=== PATIENT | female | born 1975 | race Caucasian/White ===

== ENCOUNTER 2016-10-26 21:52 | Inpatient (IN) | payer OTHER ==
[~2016-10-26] VITALS: Ht 175.3 cm; Wt 115.0 kg
[~2016-10-26 21:52] MED LIST: BACTRIM DS1 TAB PO; BAYER ASPIRIN E81 MG PO; BIAXIN500 MG PO; CIPRO500 MG PO; CUBICIN500 MG IV; CYCLOBENZAPR10 MG PO; E.E.S. 400400 MG OR; FLEXERIL OR; GLUCOTROL10 MG PO; GLYBURIDE2.5 M1 OR; GLYBURIDE5 M1 PO; GLYBURIDE5 MG PO; GRALISE300 MG PO; HUMULIN N1 ML SC; KEFLEX500 M1 PO; LEVEMIR SC; LEVEMIR1000 UNITS SC; LORTAB 10 PO; LORTAB 5 PO; LORTAB 5/3255 MG PO; LORTAB5 OR; LORTAB5 PO; MEDDOSEPAK OR; METFORMIN HCL1000 MG PO; METFORMIN500 MG PO; METRONIDAZOL500 MG PO; MINOCYCLINE100 MG PO; MONISTAT1 VA; MUCINEX600 MG OR; NAPROSYN500 MG PO; NO; NO MEDS; NOVOLIN N1000 UNITS SC; NOVOLOG FL100 UNIT/M SC; NOVOLOG SC; PERCOCET 5/325M1 TAB PO; PHENERGAN25 MG/TAB PO; PRENATAL S OR; ROBITUSSIN DM OR; ROCEPHIN1 G1 IV; SEPTRA4001 PO; ULTRAM50 M1 OR; ULTRAM50 M1 PO; ULTRAM50 MG OR; UNKNOWN INSULIN; VANCOMYCIN IV; VENTOLIN HFA IN; ZITHROMAX250 MG PO; ZPAK PO; [UNRECOGNIZED DRUG - CODE] OR; [UNRECOGNIZED DRUG - REMARK]; vancomycin
[2016-10-26 22:43] LABS: HEMATOCRIT 43.9 % (37.0-47.0); IMMATURE GRANULOCYTES 0.3 % (0.0-1.0); MEAN CELL VOLUME 86.4 fL CALC (80.0-100.0); MEAN CORPUSCULAR HGB 29.5 pG CALC (26.0-32.0); MEAN CORPUSCULAR HGB CONC 34.2 g/L CALC (32.0-36.0); NEUT# 8.08 thou/uL (2.00-7.15); RED BLOOD COUNT 5.08 mill/uL (4.20-5.60); RED CELL DISTRI WIDTH 12.3 % (11.5-15.5)
[2016-10-26 22:59] LABS: ACT PARTIAL THROMBO TIME 23.8 SECONDS (20.0-32.5); ALBUMIN 4.3 g/dL (3.2-5.0); ALKALINE PHOSPHATASE 112 u/l (38-126); ANION GAP 16 (6-22 (CALC)); BILIRUBIN, TOTAL 0.5 mg/dL (0.0-1.4); BUN 17 mg/dL (7-17); BUN/CREATININE RATIO 29 (12-20 (CALC)); CALCIUM 9.9 mg/dL (8.4-10.2); CARBON DIOXIDE 26 mmol/l (22-30); CHLORIDE 100 mmol/l (95-108); CREATININE 0.6 mg/dL (0.5-1.0); GFR > 60 ML/MIN (>=60 (CALC)); GFR FOR AFR.AMER. > 60 ML/MIN (>=60 (CALC)); GLUCOSE 236 mg/dL (65-105); INTERNATIONAL NORMALIZED RATIO 0.9 RATIO (0.7-1.3); POTASSIUM 4.1 mmol/l (3.5-5.1); PROTHROMBIN TIME 9.7 SECONDS (9.0-12.5); SGOT/AST 20 u/l (14-36); SGPT/ALT 57 u/l (9-52); SODIUM 138 mmol/l (137-146); TOTAL PROTEIN 7.4 g/dL (6.3-8.2)
[2016-10-26 23:11] LABS: MYOGLOBIN 18 ng/mL (0 - 62)
[2016-10-27] LABS: URINE BILIRUBIN - DIPSTICK NEGATIVE (NEGATIVE); URINE BLOOD DIPSTICK NEGATIVE (NEGATIVE); URINE CLARITY SLIGHT CLOUDY; URINE COLOR YELLOW; URINE GLUCOSE - DIPSTICK >=1000 mg/dL (NEGATIVE); URINE KETONE NEGATIVE (NEGATIVE); URINE LEUK ESTERASE NEGATIVE (NEGATIVE); URINE NITRITE - DIPSTICK NEGATIVE (Negative); URINE PH 5.5 (4.5-8.0); URINE PROTEIN - DIPSTICK NEGATIVE (NEG-TRACE); URINE SPECIFIC GRAVITY 1.025; URINE UROBILINOGEN - DIPSTICK 0.2 E.U./dL (0.2)
[2016-10-27 00:06] LABS: BARBITURATES NEGATIVE (NEGATIVE); COCAINE NEGATIVE (NEGATIVE); METHADONE NEGATIVE (NEGATIVE); TETRAHYDROCANNABIONOL NEGATIVE (NEGATIVE); TRICYLIC ANTIDEPRESSANTS NEGATIVE (NEGATIVE)
[2016-10-27 00:07] LABS: OXCYCODONE NEGATIVE (NEGATIVE)
[2016-10-27 01:45] VITALS: BP 122/69
[2016-10-27 02:28] VITALS: BP 122/75
[2016-10-27 07:51] VITALS: BP 119/78
[2016-10-27] MEDS ORDERED: LOSARTAN POT25 MG PO (10:17)
[2016-10-27] MEDS ORDERED: PLAVIX75 MG PO (10:18)
[2016-10-27] MEDS ORDERED: COREG6.25 MG PO (10:20)
[2016-10-27] MEDS ORDERED: ATROVENT H17 MCG/ACT (10:21)
[2016-10-27] MEDS ORDERED: ATORVASTATIN CA80 MG PO (10:21)
[2016-10-27] MEDS ORDERED: LEVEMIR FL100 UNIT/M SC (10:24)
== END 2016-10-27 11:02 | disposition home or self-care (01) | DRG 313 ==
LOC: ED 21:52 → ED-I 10-27 00:15 → ED 10-27 00:40 → MS2 10-27 00:41
PROVIDERS: Emergency Medicine; Nurse Practitioner Family; ADMIT Internal Medicine; ATTEND Internal Medicine
DX: R07.89 Other chest pain (principal); I25.10 Atherosclerotic heart disease of native coronary artery without angina pectoris; E11.40 Type 2 diabetes mellitus with diabetic neuropathy, unspecified; E11.69 Type 2 diabetes mellitus with other specified complication; I10 Essential (primary) hypertension; J45.909 Unspecified asthma, uncomplicated; F17.210 Nicotine dependence, cigarettes, uncomplicated; E66.01 Morbid (severe) obesity due to excess calories; E11.65 Type 2 diabetes mellitus with hyperglycemia; E78.5 Hyperlipidemia, unspecified; Z89.512 Acquired absence of left leg below knee; Z95.5 Presence of coronary angioplasty implant and graft; Z89.411 Acquired absence of right great toe; Z91.19 Patient's noncompliance with other medical treatment and regimen; Z68.37 Body mass index [BMI] 37.0-37.9, adult; Z79.84 Long term (current) use of oral hypoglycemic drugs; Z79.4 Long term (current) use of insulin

== ENCOUNTER 2017-12-10 09:45 | Outpatient (RCR) | payer OTHER ==
[2017-11-13 09:55] VITALS: BP 120/78
--- NOTE | 2017-12-07 10:06 | NUR ---
Wound on right Ankle is closed. No open area and no drainage observed.Left open to air.
[~2017-12-10] VITALS: Ht 175.3 cm; Wt 119.3 kg
[~2017-12-10 09:45] MED LIST changes: +ATORVASTATIN CA80 MG PO; +ATROVENT H17 MCG/ACT; +COREG6.25 MG PO; +LEVEMIR FL100 UNIT/M SC; +LOSARTAN POT25 MG PO; +PLAVIX75 MG PO
== END 2017-12-10 10:00 | disposition home or self-care (01) ==
LOC: OPWC 09:45
PROVIDERS: ATTEND Family Medicine
DX: E11.621 Type 2 diabetes mellitus with foot ulcer (principal); Z48.00 Encounter for change or removal of nonsurgical wound dressing
CPT/HCPCS: G0463

== ENCOUNTER 2017-12-18 08:38 | Outpatient (RCR) | payer OTHER | END 2017-12-18 09:38 | disposition home or self-care (01) | LOC: OPWC 08:38 | PROVIDERS: ATTEND Family Medicine | DX: E11.621 Type 2 diabetes mellitus with foot ulcer (principal); Z48.00 Encounter for change or removal of nonsurgical wound dressing | CPT/HCPCS: A6199; G0463 ==

== ENCOUNTER 2018-02-23 16:30 | Emergency (ER) | payer OTHER ==
[~2018-02-23] VITALS: Ht 175.3 cm; Wt 115.0 kg
[2018-02-23 17:09] LABS: HEMATOCRIT 43.3 % (37.0-47.0); HEMOGLOBIN 14.8 g/dl (12.0-16.0); IMMATURE GRANULOCYTES 0.4 % (0.0-5.0); MEAN CELL VOLUME 87.3 fL CALC (80.0-100.0); MEAN CORPUSCULAR HGB 29.8 pG CALC (26.0-32.0); MEAN CORPUSCULAR HGB CONC 34.2 g/L CALC (32.0-36.0); NEUT# 6.89 thou/uL (2.00-7.15); RED BLOOD COUNT 4.96 mill/uL (4.20-5.60); RED CELL DISTRI WIDTH 12.2 % (11.5-15.5)
[2018-02-23 17:28] LABS: ALKALINE PHOSPHATASE 96 u/l (38-126); ANION GAP 18 (6-22 (CALC)); BILIRUBIN, TOTAL 0.6 mg/dL (0.0-1.4); BUN 27 mg/dL (7-17); BUN/CREATININE RATIO 54 (12-20 (CALC)); CARBON DIOXIDE 23 mmol/l (22-30); CHLORIDE 99 mmol/l (95-108); CREATININE 0.5 mg/dL (0.5-1.0); GFR > 60 ML/MIN (>=60 (CALC)); GFR FOR AFR.AMER. > 60 ML/MIN (>=60 (CALC)); POTASSIUM 4.3 mmol/l (3.5-5.1); SGOT/AST 29 u/l (14-36); SODIUM 136 mmol/l (137-146); TOTAL PROTEIN 7.4 g/dL (6.3-8.2)
[2018-02-23 18:51] VITALS: BP 106/69
== END 2018-02-23 18:51 | disposition home or self-care (01) ==
LOC: ED 16:30
PROVIDERS: Family Medicine
DX: E11.65 Type 2 diabetes mellitus with hyperglycemia (principal); I10 Essential (primary) hypertension; F31.9 Bipolar disorder, unspecified; J45.909 Unspecified asthma, uncomplicated; F17.200 Nicotine dependence, unspecified, uncomplicated; I25.2 Old myocardial infarction

== ENCOUNTER 2018-04-10 02:48 | Inpatient (IN) | payer OTHER ==
[~2018-04-10] VITALS: Ht 175.3 cm; Wt 113.0 kg
[~2018-04-10 02:48] MED LIST changes: -NOVOLOG FL100 UNIT/M SC; +NOVOLOG MIX
[2018-04-10 04:08] LABS: HEMATOCRIT 41.9 % (37.0-47.0); HEMOGLOBIN 14.6 g/dl (12.0-16.0); IMMATURE GRANULOCYTES 0.4 % (0.0-5.0); MEAN CELL VOLUME 86.6 fL CALC (80.0-100.0); MEAN CORPUSCULAR HGB 30.2 pG CALC (26.0-32.0); MEAN CORPUSCULAR HGB CONC 34.8 g/L CALC (32.0-36.0); NEUT# 7.99 thou/uL (2.00-7.15); RED BLOOD COUNT 4.84 mill/uL (4.20-5.60); RED CELL DISTRI WIDTH 12.2 % (11.5-15.5)
[2018-04-10 04:24] LABS: ALBUMIN 3.9 g/dL (3.2-5.0); ALKALINE PHOSPHATASE 103 u/l (38-126); ANION GAP 15 (6-22 (CALC)); BILIRUBIN, TOTAL 0.7 mg/dL (0.0-1.4); BUN 21 mg/dL (7-17); BUN/CREATININE RATIO 48 (12-20 (CALC)); CARBON DIOXIDE 25 mmol/l (22-30); CHLORIDE 101 mmol/l (95-108); CREATININE 0.4 mg/dL (0.5-1.0); GFR > 60 ML/MIN (>=60 (CALC)); GFR FOR AFR.AMER. > 60 ML/MIN (>=60 (CALC)); POTASSIUM 4.1 mmol/l (3.5-5.1); SGOT/AST 13 u/l (14-36); SODIUM 138 mmol/l (137-146); TOTAL PROTEIN 6.9 g/dL (6.3-8.2)
[2018-04-10] MEDS ORDERED: LEVEMIR FL100 UNIT/M SC (07:58)
[2018-04-10 08:20] VITALS: BP 113/66
[2018-04-10] MEDS ORDERED: PAROXETINE10 MG PO (09:15)
[2018-04-10] MEDS ORDERED: TRAZODONE50 MG PO (09:15)
[2018-04-10] MEDS ORDERED: RISPERDAL0.5 MG PO (09:16)
[2018-04-10] MEDS ORDERED: OXCARBAZEPINE150 MG PO (09:17)
[2018-04-10 11:24] LABS: CHOLESTEROL HDL RATIO 6.1 (<4.4 (CALC)); MAGNESIUM 1.7 mg/dL (1.6-2.3)
[2018-04-10 15:08] VITALS: BP 104/65
[2018-04-10 19:15] VITALS: BP 107/70
[2018-04-10 21:20] LABS: URINE BILIRUBIN - DIPSTICK NEGATIVE (NEGATIVE); URINE BLOOD DIPSTICK NEGATIVE (NEGATIVE); URINE COLOR YELLOW; URINE GLUCOSE - DIPSTICK >=1000 mg/dL (NEGATIVE); URINE KETONE TRACE mg/dL (NEGATIVE); URINE LEUK ESTERASE NEGATIVE (NEGATIVE); URINE PH 5.5 (4.5-8.0); URINE PROTEIN - DIPSTICK NEGATIVE (NEG-TRACE); URINE SPECIFIC GRAVITY 1.025; URINE UROBILINOGEN - DIPSTICK 0.2 E.U./dL (0.2)
[2018-04-10 21:22] LABS: URINE NITRITE - DIPSTICK POSITIVE (Negative)
[2018-04-10 21:29] LABS: URINE BACTERIA MODERATE hpf; URINE SQUAMOUS EPITHELIAL CELL FEW EPI/hpf (0-FEW)
[2018-04-10 21:30] LABS: URINE YEAST MODERATE hpf
[2018-04-10 23:45] VITALS: BP 115/69
[2018-04-11] VITALS (11 sets, daily range): BP systolic 87–171; BP diastolic 47–89
[2018-04-12 03:55] VITALS: BP 94/66
[2018-04-12 05:18] LABS: HEMATOCRIT 37.1 % (37.0-47.0); IMMATURE GRANULOCYTES 0.3 % (0.0-5.0); MEAN CELL VOLUME 90.5 fL CALC (80.0-100.0); MEAN CORPUSCULAR HGB 29.8 pG CALC (26.0-32.0); MEAN CORPUSCULAR HGB CONC 32.9 g/L CALC (32.0-36.0); NEUT# 5.98 thou/uL (2.00-7.15); RED BLOOD COUNT 4.1 mill/uL (4.20-5.60); RED CELL DISTRI WIDTH 12.3 % (11.5-15.5)
[2018-04-12 05:24] LABS: HEMOGLOBIN 12.2 g/dl (12.0-16.0)
[2018-04-12 05:50] LABS: ALKALINE PHOSPHATASE 79 u/l (38-126); AMYLASE < 30 u/l (30-110); ANION GAP 11 (6-22 (CALC)); BILIRUBIN, TOTAL 0.2 mg/dL (0.0-1.4); BUN 15 mg/dL (7-17); BUN/CREATININE RATIO 25 (12-20 (CALC)); CARBON DIOXIDE 25 mmol/l (22-30); CHLORIDE 109 mmol/l (95-108); CREATININE 0.6 mg/dL (0.5-1.0); GFR > 60 ML/MIN (>=60 (CALC)); GFR FOR AFR.AMER. > 60 ML/MIN (>=60 (CALC)); LIPASE 57 u/l (23-300); MAGNESIUM 1.9 mg/dL (1.6-2.3); POTASSIUM 4.2 mmol/l (3.5-5.1); SGOT/AST 19 u/l (14-36); SODIUM 141 mmol/l (137-146)
[2018-04-12 05:51] LABS: ALBUMIN 2.9 g/dL (3.2-5.0); TOTAL PROTEIN 5.4 g/dL (6.3-8.2)
[2018-04-12 07:21] VITALS: BP 118/74
[2018-04-12 11:05] VITALS: BP 115/59
[2018-04-12] MEDS ORDERED: CEPHALEXIN500 MG PO (16:10)
== END 2018-04-12 16:59 | disposition home or self-care (01) | DRG 617 ==
LOC: ED 02:48 → ED-I 06:26 → ED 06:58 → MS2 06:59
PROVIDERS: Emergency Medicine; Nurse Practitioner Family; ADMIT Internal Medicine; ATTEND Internal Medicine Nephrology
PROC: 0Y6R0Z0 Detachment at Right 2nd Toe, Complete, Open Approach (ICD-10-PCS; principal; 2018-04-11)
DX: E11.69 Type 2 diabetes mellitus with other specified complication (principal); L97.518 Non-pressure chronic ulcer of other part of right foot with other specified severity; M00.9 Pyogenic arthritis, unspecified; M86.171 Other acute osteomyelitis, right ankle and foot; L02.611 Cutaneous abscess of right foot; E11.621 Type 2 diabetes mellitus with foot ulcer; L03.031 Cellulitis of right toe; E11.65 Type 2 diabetes mellitus with hyperglycemia; E11.42 Type 2 diabetes mellitus with diabetic polyneuropathy; E11.51 Type 2 diabetes mellitus with diabetic peripheral angiopathy without gangrene; E11.319 Type 2 diabetes mellitus with unspecified diabetic retinopathy without macular edema; I10 Essential (primary) hypertension; F31.9 Bipolar disorder, unspecified; I25.10 Atherosclerotic heart disease of native coronary artery without angina pectoris; J45.909 Unspecified asthma, uncomplicated; E78.5 Hyperlipidemia, unspecified; F17.200 Nicotine dependence, unspecified, uncomplicated; E66.9 Obesity, unspecified; I25.2 Old myocardial infarction; Z89.411 Acquired absence of right great toe; Z68.36 Body mass index [BMI] 36.0-36.9, adult; Z91.19 Patient's noncompliance with other medical treatment and regimen; Z79.02 Long term (current) use of antithrombotics/antiplatelets; Z79.82 Long term (current) use of aspirin; Z79.4 Long term (current) use of insulin; Z89.512 Acquired absence of left leg below knee; Z95.5 Presence of coronary angioplasty implant and graft

== ENCOUNTER 2019-01-03 14:11 | Emergency (ER) | payer OTHER ==
[~2019-01-03] VITALS: Ht 175.3 cm; Wt 115.0 kg
[~2019-01-03 14:11] MED LIST changes: +CEPHALEXIN500 MG PO; +OXCARBAZEPINE150 MG PO; +PAROXETINE10 MG PO; +RISPERDAL0.5 MG PO; +TRAZODONE50 MG PO
[2019-01-03 15:05] LABS: HEMATOCRIT 43.4 % (37.0-47.0); HEMOGLOBIN 14.2 g/dl (12.0-16.0); IMMATURE GRANULOCYTES 0.4 % (0.0-5.0); MEAN CELL VOLUME 87.3 fL CALC (80.0-100.0); MEAN CORPUSCULAR HGB 28.6 pG CALC (26.0-32.0); MEAN CORPUSCULAR HGB CONC 32.7 g/L CALC (32.0-36.0); NEUT# 9.32 thou/uL (2.00-7.15); RED BLOOD COUNT 4.97 mill/uL (4.20-5.60); RED CELL DISTRI WIDTH 12.5 % (11.5-15.5)
[2019-01-03 15:21] LABS: ALBUMIN 4.3 g/dL (3.2-5.0); ALKALINE PHOSPHATASE 113 u/l (38-126); ANION GAP 14 (6-22 (CALC)); BILIRUBIN, TOTAL 0.5 mg/dL (0.0-1.4); BUN 16 mg/dL (7-17); BUN/CREATININE RATIO 31 (12-20 (CALC)); CARBON DIOXIDE 24 mmol/l (22-30); CHLORIDE 106 mmol/l (95-108); CREATININE 0.5 mg/dL (0.5-1.0); ETHYL ALCOHOL 0 mg/dl (0-30); GFR > 60 ML/MIN (>=60 (CALC)); GFR FOR AFR.AMER. > 60 ML/MIN (>=60 (CALC)); MAGNESIUM 2.2 mg/dL (1.6-2.3); POTASSIUM 4.2 mmol/l (3.5-5.1); SGOT/AST 26 u/l (14-36); SODIUM 139 mmol/l (137-146); TOTAL PROTEIN 7.9 g/dL (6.3-8.2)
[2019-01-03 15:31] LABS: MYOGLOBIN 16 ng/mL (0 - 62)
[2019-01-03 17:32] LABS: URINE BILIRUBIN - DIPSTICK NEGATIVE (NEGATIVE); URINE BLOOD DIPSTICK TRACE-LYSED (NEGATIVE); URINE COLOR YELLOW; URINE GLUCOSE - DIPSTICK >=1000 mg/dL (NEGATIVE); URINE KETONE NEGATIVE (NEGATIVE); URINE NITRITE - DIPSTICK NEGATIVE (Negative); URINE PH 5.5 (4.5-8.0); URINE PROTEIN - DIPSTICK NEGATIVE (NEG-TRACE); URINE SPECIFIC GRAVITY 1.025; URINE UROBILINOGEN - DIPSTICK 0.2 E.U./dL (0.2)
[2019-01-03 17:35] LABS: BARBITURATES NEGATIVE (NEGATIVE); COCAINE NEGATIVE (NEGATIVE); METHADONE NEGATIVE (NEGATIVE); TETRAHYDROCANNABIONOL NEGATIVE (NEGATIVE); TRICYLIC ANTIDEPRESSANTS NEGATIVE (NEGATIVE)
[2019-01-03 17:36] LABS: OXCYCODONE NEGATIVE (NEGATIVE)
[2019-01-03 17:38] LABS: URINE LEUK ESTERASE SMALL (NEGATIVE)
[2019-01-03 17:42] LABS: URINE BACTERIA MANY hpf; URINE SQUAMOUS EPITHELIAL CELL FEW EPI/hpf (0-FEW); URINE WBC 50-100 WBC/hpf (0-5)
[2019-01-03] MEDS ORDERED: BACTRIM DS1 TAB PO (17:45)
[2019-01-03 17:55] VITALS: BP 115/70
== END 2019-01-03 17:55 | disposition home or self-care (01) ==
LOC: ED 14:11
PROVIDERS: Family Medicine
DX: N39.0 Urinary tract infection, site not specified (principal); R55 Syncope and collapse; M25.512 Pain in left shoulder; E11.40 Type 2 diabetes mellitus with diabetic neuropathy, unspecified; F17.200 Nicotine dependence, unspecified, uncomplicated; I25.2 Old myocardial infarction; W05.0XXA Fall from non-moving wheelchair, initial encounter; Y92.008 Other place in unspecified non-institutional (private) residence as the place of occurrence of the external cause; Z89.512 Acquired absence of left leg below knee; Z79.4 Long term (current) use of insulin; Z95.5 Presence of coronary angioplasty implant and graft

== ENCOUNTER 2019-03-29 | Emergency (ER) | payer OTHER ==
[2019-03-29 17:48] LABS: HEMATOCRIT 39.7 % (37.0-47.0); HEMOGLOBIN 13.2 g/dl (12.0-16.0); IMMATURE GRANULOCYTES 0.6 % (0.0-5.0); MEAN CELL VOLUME 84.8 fL CALC (80.0-100.0); MEAN CORPUSCULAR HGB 28.2 pG CALC (26.0-32.0); MEAN CORPUSCULAR HGB CONC 33.2 g/L CALC (32.0-36.0); NEUT# 12.49 thou/uL (2.00-7.15); RED BLOOD COUNT 4.68 mill/uL (4.20-5.60); RED CELL DISTRI WIDTH 13.2 % (11.5-15.5)
[2019-03-29 17:59] LABS: ALBUMIN 3.8 g/dL (3.2-5.0); ALKALINE PHOSPHATASE 126 u/l (38-126); BILIRUBIN, TOTAL 0.5 mg/dL (0.0-1.4); BUN 20 mg/dL (7-17); BUN/CREATININE RATIO 40 (12-20 (CALC)); CARBON DIOXIDE 23 mmol/l (22-30); CHLORIDE 96 mmol/l (95-108); CREATININE 0.5 mg/dL (0.5-1.0); GFR > 60 ML/MIN (>=60 (CALC)); GFR FOR AFR.AMER. > 60 ML/MIN (>=60 (CALC)); LIPASE 85 u/l (23-300); POTASSIUM 4.1 mmol/l (3.5-5.1); SGOT/AST 16 u/l (14-36); TOTAL PROTEIN 7.4 g/dL (6.3-8.2)
[2019-03-29 18:02] LABS: ANION GAP 17 (6-22 (CALC)); SODIUM 132 mmol/l (137-146)
[2019-03-29] MEDS ORDERED: LANTUS100 UNIT/M SC (20:04)
[2019-03-29] MEDS ORDERED: DOXYCYCL HYC100 MG PO (21:24)
== END 2019-03-29 21:45 | disposition home or self-care (01) ==
PROVIDERS: Family Medicine
DX: T81.41XA Infection following a procedure, superficial incisional surgical site, initial encounter (principal); L02.211 Cutaneous abscess of abdominal wall; L03.311 Cellulitis of abdominal wall; I10 Essential (primary) hypertension; E11.40 Type 2 diabetes mellitus with diabetic neuropathy, unspecified; F17.200 Nicotine dependence, unspecified, uncomplicated; B95.62 Methicillin resistant Staphylococcus aureus infection as the cause of diseases classified elsewhere; Y83.6 Removal of other organ (partial) (total) as the cause of abnormal reaction of the patient, or of later complication, without mention of misadventure at the time of the procedure; Z79.4 Long term (current) use of insulin; Z95.5 Presence of coronary angioplasty implant and graft; Z89.512 Acquired absence of left leg below knee
CPT/HCPCS: J0692; Q9967

== ENCOUNTER 2019-12-22 16:21 | Emergency (ER) | payer OTHER ==
[~2019-12-22] VITALS: Ht 175.3 cm; Wt 110.0 kg
[~2019-12-22 16:21] MED LIST changes: +DOXYCYCL HYC100 MG PO; +LANTUS100 UNIT/M SC
[2019-12-22] MEDS ORDERED: HYDROCO/APAP1 TA9 PO (18:13)
[2019-12-22] MEDS ORDERED: MOTRIN200 MG PO (18:21)
[2019-12-22] MEDS ORDERED: XANAX1 MG PO (18:21)
[2019-12-22 18:38] VITALS: BP 124/64
== END 2019-12-22 18:40 | disposition home or self-care (01) ==
LOC: ED 16:21
DX: M25.512 Pain in left shoulder (principal); M25.532 Pain in left wrist; M25.522 Pain in left elbow; I10 Essential (primary) hypertension; F31.9 Bipolar disorder, unspecified; E11.40 Type 2 diabetes mellitus with diabetic neuropathy, unspecified; F17.210 Nicotine dependence, cigarettes, uncomplicated; I25.2 Old myocardial infarction; V00.831A Fall from motorized mobility scooter, initial encounter; Y92.009 Unspecified place in unspecified non-institutional (private) residence as the place of occurrence of the external cause; Z95.5 Presence of coronary angioplasty implant and graft; Z89.512 Acquired absence of left leg below knee; Z79.4 Long term (current) use of insulin

== ENCOUNTER 2021-03-29 11:38 | Inpatient (IN) | payer MEDICAID ==
[~2021-03-29] VITALS: Ht 175.3 cm; Wt 118.0 kg
[~2021-03-29 11:38] MED LIST changes: +ATORVASTATIN CA20 MG PO; -ATORVASTATIN CA80 MG PO; +HYDROCO/APAP1 TA9 PO; +MOTRIN200 MG PO; +XANAX1 MG PO
[2021-03-29 12:09] LABS: HEMATOCRIT 44.2 % (37.0-47.0); HEMOGLOBIN 14.5 g/dl (12.0-16.0); IMMATURE GRANULOCYTES 0.2 % (0.0-5.0); MEAN CELL VOLUME 89.7 fL CALC (80.0-100.0); MEAN CORPUSCULAR HGB 29.4 pG CALC (26.0-32.0); MEAN CORPUSCULAR HGB CONC 32.8 g/dL CAL (32.0-36.0); NEUT# 10.71 thou/uL (2.00-7.15); RED BLOOD COUNT 4.93 mill/uL (4.20-5.60); RED CELL DISTRI WIDTH 12.7 % (11.5-15.5)
[2021-03-29 12:29] LABS: ACT PARTIAL THROMBO TIME 23.4 SECONDS (20.0-32.5); ALBUMIN 3.9 g/dL (3.2-5.0); ALKALINE PHOSPHATASE 138 u/l (38-126); ANION GAP 12 (6-22 (CALC)); BUN 17 mg/dL (7-17); BUN/CREATININE RATIO 33 (12-20 (CALC)); CARBON DIOXIDE 23 mmol/l (22-30); CHLORIDE 103 mmol/l (95-108); CREATININE 0.5 mg/dL (0.5-1.0); GFR > 60 ML/MIN (>=60 (CALC)); GFR FOR AFR.AMER. > 60 ML/MIN (>=60 (CALC)); INTERNATIONAL NORMALIZED RATIO 0.9 RATIO (0.7-1.3); LIPASE 28 u/l (23-300); POTASSIUM 4.1 mmol/l (3.5-5.1); PROTHROMBIN TIME 9.8 SECONDS (9.0-12.5); SGOT/AST 21 u/l (14-36); SODIUM 133 mmol/l (137-146); TOTAL PROTEIN 7.7 g/dL (6.3-8.2)
[2021-03-29 12:40] LABS: BILIRUBIN, TOTAL 0.8 mg/dL (0.0-1.4)
[2021-03-29 16:51] VITALS: BP 107/55
[2021-03-29 20:00] VITALS: BP 127/55
[2021-03-30] VITALS: BP 114/60
[2021-03-30 04:00] VITALS: BP 111/58
[2021-03-30 05:42] LABS: HEMATOCRIT 41.6 % (37.0-47.0); HEMOGLOBIN 13.4 g/dl (12.0-16.0); IMMATURE GRANULOCYTES 0.2 % (0.0-5.0); MEAN CORPUSCULAR HGB 29.3 pG CALC (26.0-32.0); MEAN CORPUSCULAR HGB CONC 32.2 g/dL CAL (32.0-36.0); NEUT# 4.71 thou/uL (2.00-7.15); RED BLOOD COUNT 4.57 mill/uL (4.20-5.60)
[2021-03-30 06:00] LABS: ALBUMIN 3.2 g/dL (3.2-5.0); ALKALINE PHOSPHATASE 115 u/l (38-126); ANION GAP 11 (6-22 (CALC)); BILIRUBIN, TOTAL 0.5 mg/dL (0.0-1.4); BUN 24 mg/dL (7-17); BUN/CREATININE RATIO 41 (12-20 (CALC)); CARBON DIOXIDE 23 mmol/l (22-30); CHLORIDE 104 mmol/l (95-108); CREATININE 0.6 mg/dL (0.5-1.0); GFR > 60 ML/MIN (>=60 (CALC)); GFR FOR AFR.AMER. > 60 ML/MIN (>=60 (CALC)); MAGNESIUM 1.9 mg/dL (1.6-2.3); POTASSIUM 3.6 mmol/l (3.5-5.1); SGOT/AST 27 u/l (14-36); SODIUM 134 mmol/l (137-146); TOTAL PROTEIN 6.4 g/dL (6.3-8.2)
[2021-03-30] MEDS ORDERED: CYCLOBENZAPRINE10 MG PO (07:56)
[2021-03-30] MEDS ORDERED: APAP/CODEINE1 TAB PO (07:57)
[2021-03-30] MEDS ORDERED: HYDROXYCHLOR200 M1 PO (07:57)
[2021-03-30] MEDS ORDERED: MACROBID100 M1 PO (07:58)
[2021-03-30] MEDS ORDERED: XANAX1 MG PO (07:59)
[2021-03-30] MEDS ORDERED: FLONASE AL50 MCG/ACT (07:59)
[2021-03-30] MEDS ORDERED: SINGULAIR10 MG PO (08:00)
[2021-03-30] MEDS ORDERED: ATORVASTATIN CA10 MG PO (08:03)
[2021-03-30 09:13] LABS: CHOLESTEROL HDL RATIO 6.4 (<4.4 (CALC))
[2021-03-30 10:30] VITALS: BP 146/73
[2021-03-30 14:40] VITALS: BP 147/83
[2021-03-30 20:58] VITALS: BP 138/77
[2021-03-31 00:05] VITALS: BP 146/76
[2021-03-31 04:00] VITALS: BP 117/74
[2021-03-31 05:21] LABS: HEMATOCRIT 40.2 % (37.0-47.0); HEMOGLOBIN 13.1 g/dl (12.0-16.0); IMMATURE GRANULOCYTES 0.2 % (0.0-5.0); MEAN CELL VOLUME 90.3 fL CALC (80.0-100.0); MEAN CORPUSCULAR HGB 29.4 pG CALC (26.0-32.0); MEAN CORPUSCULAR HGB CONC 32.6 g/dL CAL (32.0-36.0); NEUT# 3.67 thou/uL (2.00-7.15); RED BLOOD COUNT 4.45 mill/uL (4.20-5.60); RED CELL DISTRI WIDTH 12.7 % (11.5-15.5)
[2021-03-31 05:48] LABS: ALBUMIN 3.1 g/dL (3.2-5.0); ALKALINE PHOSPHATASE 121 u/l (38-126); BILIRUBIN, TOTAL 0.4 mg/dL (0.0-1.4); BUN 22 mg/dL (7-17); BUN/CREATININE RATIO 46 (12-20 (CALC)); CHLORIDE 103 mmol/l (95-108); CREATININE 0.5 mg/dL (0.5-1.0); GFR > 60 ML/MIN (>=60 (CALC)); GFR FOR AFR.AMER. > 60 ML/MIN (>=60 (CALC)); POTASSIUM 3.8 mmol/l (3.5-5.1); SGOT/AST 29 u/l (14-36); SODIUM 136 mmol/l (137-146); TOTAL PROTEIN 6.2 g/dL (6.3-8.2)
[2021-03-31 05:51] LABS: ANION GAP 9 (6-22 (CALC)); CARBON DIOXIDE 28 mmol/l (22-30)
[2021-03-31 11:03] VITALS: BP 130/65
[2021-03-31 15:11] VITALS: BP 113/66
[2021-03-31 19:00] VITALS: BP 138/73
[2021-04-01] VITALS: BP 128/62
[2021-04-01 04:36] VITALS: BP 111/56
[2021-04-01 06:26] LABS: HEMATOCRIT 38.8 % (37.0-47.0); HEMOGLOBIN 12.8 g/dl (12.0-16.0); IMMATURE GRANULOCYTES 0.3 % (0.0-5.0); MEAN CELL VOLUME 90.7 fL CALC (80.0-100.0); MEAN CORPUSCULAR HGB 29.9 pG CALC (26.0-32.0); NEUT# 3.17 thou/uL (2.00-7.15); RED BLOOD COUNT 4.28 mill/uL (4.20-5.60); RED CELL DISTRI WIDTH 12.7 % (11.5-15.5)
[2021-04-01 06:29] LABS: ALKALINE PHOSPHATASE 108 u/l (38-126); ANION GAP 10 (6-22 (CALC)); BILIRUBIN, TOTAL 0.3 mg/dL (0.0-1.4); BUN 25 mg/dL (7-17); BUN/CREATININE RATIO 45 (12-20 (CALC)); CARBON DIOXIDE 25 mmol/l (22-30); CHLORIDE 104 mmol/l (95-108); CREATININE 0.5 mg/dL (0.5-1.0); GFR > 60 ML/MIN (>=60 (CALC)); GFR FOR AFR.AMER. > 60 ML/MIN (>=60 (CALC)); SGOT/AST 29 u/l (14-36); SODIUM 135 mmol/l (137-146); TOTAL PROTEIN 6.1 g/dL (6.3-8.2)
[2021-04-01 10:57] VITALS: BP 125/60
[2021-04-01 15:24] VITALS: BP 134/68
[2021-04-01 19:17] VITALS: BP 152/80
[2021-04-02 00:29] VITALS: BP 129/63
[2021-04-02 04:30] VITALS: BP 114/61
[2021-04-02 05:55] LABS: HEMATOCRIT 39.6 % (37.0-47.0); HEMOGLOBIN 12.9 g/dl (12.0-16.0); MEAN CELL VOLUME 90.6 fL CALC (80.0-100.0); MEAN CORPUSCULAR HGB 29.5 pG CALC (26.0-32.0); MEAN CORPUSCULAR HGB CONC 32.6 g/dL CAL (32.0-36.0); RED BLOOD COUNT 4.37 mill/uL (4.20-5.60); RED CELL DISTRI WIDTH 12.5 % (11.5-15.5)
[2021-04-02 06:08] LABS: ANION GAP 10 (6-22 (CALC)); BUN 19 mg/dL (7-17); BUN/CREATININE RATIO 40 (12-20 (CALC)); CARBON DIOXIDE 27 mmol/l (22-30); CHLORIDE 102 mmol/l (95-108); CREATININE 0.5 mg/dL (0.5-1.0); GFR > 60 ML/MIN (>=60 (CALC)); GFR FOR AFR.AMER. > 60 ML/MIN (>=60 (CALC)); SODIUM 135 mmol/l (137-146)
[2021-04-02 07:10] VITALS: BP 118/64
[2021-04-02 11:31] VITALS: BP 125/61
[2021-04-02 15:40] VITALS: BP 151/63
[2021-04-02 19:00] VITALS: BP 156/77
[2021-04-03] VITALS: BP 159/76
[2021-04-03 04:00] VITALS: BP 113/54
[2021-04-03 05:44] LABS: HEMATOCRIT 40.2 % (37.0-47.0); HEMOGLOBIN 13.1 g/dl (12.0-16.0); MEAN CELL VOLUME 90.1 fL CALC (80.0-100.0); MEAN CORPUSCULAR HGB 29.4 pG CALC (26.0-32.0); MEAN CORPUSCULAR HGB CONC 32.6 g/dL CAL (32.0-36.0); RED BLOOD COUNT 4.46 mill/uL (4.20-5.60); RED CELL DISTRI WIDTH 12.5 % (11.5-15.5)
[2021-04-03 05:59] LABS: ANION GAP 10 (6-22 (CALC)); BUN 22 mg/dL (7-17); BUN/CREATININE RATIO 44 (12-20 (CALC)); CARBON DIOXIDE 28 mmol/l (22-30); CHLORIDE 101 mmol/l (95-108); CREATININE 0.5 mg/dL (0.5-1.0); GFR > 60 ML/MIN (>=60 (CALC)); GFR FOR AFR.AMER. > 60 ML/MIN (>=60 (CALC)); MAGNESIUM 1.6 mg/dL (1.6-2.3); POTASSIUM 4.2 mmol/l (3.5-5.1); SODIUM 134 mmol/l (137-146)
[2021-04-03 07:00] VITALS: BP 118/62
[2021-04-03 11:00] VITALS: BP 147/71
[2021-04-03 16:00] VITALS: BP 148/72
[2021-04-03 19:00] VITALS: BP 110/58
[2021-04-04] VITALS (7 sets, daily range): BP systolic 108–128; BP diastolic 59–72
[2021-04-04 06:02] LABS: HEMATOCRIT 39.5 % (37.0-47.0); HEMOGLOBIN 12.9 g/dl (12.0-16.0); MEAN CELL VOLUME 90.2 fL CALC (80.0-100.0); MEAN CORPUSCULAR HGB 29.5 pG CALC (26.0-32.0); MEAN CORPUSCULAR HGB CONC 32.7 g/dL CAL (32.0-36.0); RED BLOOD COUNT 4.38 mill/uL (4.20-5.60); RED CELL DISTRI WIDTH 12.3 % (11.5-15.5)
[2021-04-04 06:16] LABS: ANION GAP 12 (6-22 (CALC)); BUN 27 mg/dL (7-17); BUN/CREATININE RATIO 49 (12-20 (CALC)); CARBON DIOXIDE 27 mmol/l (22-30); CHLORIDE 101 mmol/l (95-108); CREATININE 0.6 mg/dL (0.5-1.0); GFR > 60 ML/MIN (>=60 (CALC)); GFR FOR AFR.AMER. > 60 ML/MIN (>=60 (CALC)); MAGNESIUM 1.8 mg/dL (1.6-2.3); POTASSIUM 4.3 mmol/l (3.5-5.1); SODIUM 136 mmol/l (137-146)
[2021-04-05] VITALS: BP 130/76
[2021-04-05 04:00] VITALS: BP 120/68
[2021-04-05 06:03] LABS: HEMATOCRIT 39.6 % (37.0-47.0); HEMOGLOBIN 12.9 g/dl (12.0-16.0); MEAN CORPUSCULAR HGB 29.3 pG CALC (26.0-32.0); MEAN CORPUSCULAR HGB CONC 32.6 g/dL CAL (32.0-36.0); RED BLOOD COUNT 4.4 mill/uL (4.20-5.60); RED CELL DISTRI WIDTH 12.3 % (11.5-15.5)
[2021-04-05 06:17] LABS: ANION GAP 11 (6-22 (CALC)); BUN 29 mg/dL (7-17); BUN/CREATININE RATIO 49 (12-20 (CALC)); CARBON DIOXIDE 28 mmol/l (22-30); CHLORIDE 100 mmol/l (95-108); CREATININE 0.6 mg/dL (0.5-1.0); GFR > 60 ML/MIN (>=60 (CALC)); GFR FOR AFR.AMER. > 60 ML/MIN (>=60 (CALC)); MAGNESIUM 1.8 mg/dL (1.6-2.3); POTASSIUM 4.5 mmol/l (3.5-5.1); SODIUM 135 mmol/l (137-146)
[2021-04-05] MEDS ORDERED: PLAVIX75 MG PO (11:12)
[2021-04-05] MEDS ORDERED: ATORVASTATIN CA40 MG PO (11:12)
[2021-04-05] MEDS ORDERED: LOSARTAN POTASS25 MG PO (11:15)
[2021-04-05] MEDS ORDERED: TRAMADOL HCL50 MG PO (11:15)
[2021-04-05] MEDS ORDERED: GABAPENTIN300 M2 PO (11:16)
[2021-04-05] MEDS ORDERED: LEVEMIR100 UNIT SC (11:16)
[2021-04-05 12:12] VITALS: BP 124/67
== END 2021-04-05 13:34 | disposition home or self-care (01) | DRG 637 ==
LOC: ED 11:38 → ED-I 14:30 → ED 14:54 → MS2 14:55
PROVIDERS: Nurse Practitioner; ADMIT Internal Medicine; ATTEND Internal Medicine
DX: E11.628 Type 2 diabetes mellitus with other skin complications (principal); U07.1 COVID-19; L03.115 Cellulitis of right lower limb; L97.518 Non-pressure chronic ulcer of other part of right foot with other specified severity; R78.81 Bacteremia; E11.621 Type 2 diabetes mellitus with foot ulcer; E11.65 Type 2 diabetes mellitus with hyperglycemia; I10 Essential (primary) hypertension; E11.42 Type 2 diabetes mellitus with diabetic polyneuropathy; F31.9 Bipolar disorder, unspecified; I25.10 Atherosclerotic heart disease of native coronary artery without angina pectoris; R07.9 Chest pain, unspecified; J45.909 Unspecified asthma, uncomplicated; I25.2 Old myocardial infarction; F17.200 Nicotine dependence, unspecified, uncomplicated; B95.1 Streptococcus, group B, as the cause of diseases classified elsewhere; Z95.5 Presence of coronary angioplasty implant and graft; Z79.84 Long term (current) use of oral hypoglycemic drugs; Z79.4 Long term (current) use of insulin; Z89.512 Acquired absence of left leg below knee; Z89.411 Acquired absence of right great toe; Z89.421 Acquired absence of other right toe(s)
CPT/HCPCS: A9579; J1650; Q3014

== ENCOUNTER 2021-04-20 20:05 | Emergency (ER) | payer MEDICAID ==
[~2021-04-20 20:05] MED LIST changes: +APAP/CODEINE1 TAB PO; +ATORVASTATIN CA10 MG PO; +ATORVASTATIN CA40 MG PO; +CYCLOBENZAPRINE10 MG PO; +FLONASE AL50 MCG/ACT; +GABAPENTIN300 M2 PO; +HYDROXYCHLOR200 M1 PO; +LEVEMIR100 UNIT SC; +LOSARTAN POTASS25 MG PO; +MACROBID100 M1 PO; +SINGULAIR10 MG PO; +TRAMADOL HCL50 MG PO
== END 2021-04-20 21:40 | disposition left against medical advice (07) | DRG 951 ==
LOC: ED 20:05 → LWOBS 21:40
DX: Z53.21 Procedure and treatment not carried out due to patient leaving prior to being seen by health care provider (principal)

== ENCOUNTER 2021-09-16 14:50 | Observation (INO) | payer MEDICAID ==
[~2021-09-16] VITALS: Ht 175.3 cm; Wt 110.0 kg
--- NOTE | 2021-09-16 15:59 | NUR ---
PT TO ROOM VIA WC
--- NOTE | 2021-09-16 17:00 | NUR ---
PATIENT INFORMED THAT SHE MAY BE ADMITTED.
[2021-09-16 17:01] LABS: HEMATOCRIT 40.6 % (37.0-47.0); HEMOGLOBIN 13.4 g/dl (12.0-16.0); IMMATURE GRANULOCYTES 0.2 % (0.0-5.0); MEAN CELL VOLUME 89.8 fL CALC (80.0-100.0); MEAN CORPUSCULAR HGB 29.6 pG CALC (26.0-32.0); NEUT# 10.15 thou/uL (2.00-7.15); RED BLOOD COUNT 4.52 mill/uL (4.20-5.60)
[2021-09-16 17:02] LABS: GFR FOR AFR.AMER. > 60 ML/MIN (>=60 (CALC)); GFR OTHER RACES > 60 ML/MIN (>=60 (CALC))
[2021-09-16 17:12] LABS: ALBUMIN 3.7 g/dL (3.2-5.0); ALKALINE PHOSPHATASE 120 u/l (38-126); BUN 11 mg/dL (7-17); BUN/CREATININE RATIO 26 (12-20 (CALC)); CHLORIDE 104 mmol/l (95-108); CREATININE 0.4 mg/dL (0.5-1.0); GFR FOR AFR.AMER. > 60 ML/MIN (>=60 (CALC)); GFR OTHER RACES > 60 ML/MIN (>=60 (CALC)); POTASSIUM 3.9 mmol/l (3.5-5.1); SGOT/AST 17 u/l (14-36); SODIUM 134 mmol/l (137-146); TOTAL PROTEIN 6.6 g/dL (6.3-8.2)
[2021-09-16 17:13] LABS: ANION GAP 15 (6-22 (CALC)); BILIRUBIN, TOTAL 0.3 mg/dL (0.0-1.4); CARBON DIOXIDE 19 mmol/l (22-30)
--- NOTE | 2021-09-16 19:02 | NUR ---
PATIENT AWAITING ADMISSION.
--- NOTE | 2021-09-16 19:19 | NUR ---
ASSUMED CARE AT SHIFT CHANGE. PT IN ROOM COMFORTABLE. RECIEVED NEW BS AT 383. GAVE PT WATER, SWABBED FOR COVID. PT CURRENTLY AWAITING ROOM ASSIGNMENT. WILL CONTINUE TO MONITOR.
--- NOTE | 2021-09-16 20:30 | NUR ---
ATTEMPTED TO CALL REPORT FOR PT TO BE TRANSFERRED TO 267 - NURSE IN ANOTHER PT ROOM WILL CALL BACK IN 5.
--- NOTE | 2021-09-16 20:40 | NUR ---
CALLED [facility] TO GIVE REPORT AGAIN, RECIEVING NURSE DOES NOT WANT TO TAKE PT FOR 15 MINUTES DUE TO JUST RECIEVING OTHER PT. WILL CALL BACK IN 15.
--- NOTE | 2021-09-16 20:55 | NUR ---
REPORT RECEIVED FROM ADITYA ODONNELL.
--- NOTE | 2021-09-16 21:05 | NUR ---
PATIENT ARRIVED VIA STRETCHER ACCOMPANIED BY ADITYA ODONNELL.
--- NOTE | 2021-09-16 21:50 | NUR ---
DR DUMONT AT BEDSIDE
--- NOTE | 2021-09-16 22:45 | NUR ---
MEDICATIONS ADMINISTERED PER EMAR, SEE EMAR.
[2021-09-17 00:38] VITALS: BP 129/67
--- NOTE | 2021-09-17 01:00 | NUR ---
PATIENT RESTING COMOFRTABLY, DENIES ANY CURRENT NEEDS, CALL LIGHT AND BEDSIDE TABLE WITHIN REACH.
--- NOTE | 2021-09-17 04:15 | NUR ---
PATIENT UP TO THE BSC AT THIS TIME. PATIENT ABLE TO STAND AND PIVOT ON RIGHT LEG, PATIENT IS A LEFT LOWER LEG AMPUTEE, BUT CAN USE RIGHT LEG WELL. STANDBY ASSITANCE PROVIDED. CALL LIGHT AND BEDSIDE TABLE WITHIN REACH.
[2021-09-17 04:26] VITALS: BP 136/73
[2021-09-17 05:50] LABS: HEMATOCRIT 36.8 % (37.0-47.0); HEMOGLOBIN 12.3 g/dl (12.0-16.0); MEAN CELL VOLUME 88.5 fL CALC (80.0-100.0); MEAN CORPUSCULAR HGB 29.6 pG CALC (26.0-32.0); MEAN CORPUSCULAR HGB CONC 33.4 g/dL CAL (32.0-36.0); RED BLOOD COUNT 4.16 mill/uL (4.20-5.60); RED CELL DISTRI WIDTH 13.3 % (11.5-15.5)
[2021-09-17 06:45] LABS: BUN 12 mg/dL (7-17); BUN/CREATININE RATIO 27 (12-20 (CALC)); CARBON DIOXIDE 22 mmol/l (22-30); CHLORIDE 108 mmol/l (95-108); CREATININE 0.4 mg/dL (0.5-1.0); GFR FOR AFR.AMER. > 60 ML/MIN (>=60 (CALC)); GFR OTHER RACES > 60 ML/MIN (>=60 (CALC)); SODIUM 135 mmol/l (137-146)
[2021-09-17 06:47] LABS: ANION GAP 9 (6-22 (CALC)); POTASSIUM 3.5 mmol/l (3.5-5.1)
--- NOTE | 2021-09-17 07:00 | NUR ---
REPORT RECIEVED FROM MINIBUS DRIVER RN
[2021-09-17 07:23] VITALS: BP 137/83
--- NOTE | 2021-09-17 08:21 | NUR ---
PT RESTING IN BED WITH IVF INFUSING PER EMAR. TELE MONITOR IN PLACE, CONTINOUS MONTITORING PER ED. IV 20 RAC FLUSHED. PT VOICES PAIN 8/10 MEDICATED SEE EMAR. PT ABLE TO TAKE PO MEDS WELL. BLOOD GLUCOSE: 283 COVERERED PER SLIDING SCALE. PT HAS LBKA. RIGHT PEDAL PULSE STRONG. DRESSING CHANGE ON GROIN AREA PACKING. PT TOLERATED WELL. FALL/SAFTEY PRECAUTIOM CALL LIGHT WITHIN REACH
[2021-09-17] MEDS ORDERED: FAMOTIDINE PO (10:39)
[2021-09-17] MEDS ORDERED: ARAVA10 MG PO (10:40)
[2021-09-17] MEDS ORDERED: MUPIROCIN21 TOP (10:40)
[2021-09-17] MEDS ORDERED: ALL DAY10 MG PO (10:41)
[2021-09-17] MEDS ORDERED: LANTUS SOL100 UNIT/M SC (10:42)
[2021-09-17] MEDS ORDERED: ZOLPIDEM5 M1 PO (10:43)
[2021-09-17] MEDS ORDERED: VITAMIN D350000 UNIT PO (10:43)
[2021-09-17] MEDS ORDERED: IPRATROPIUM BR0.02 % PO (10:44)
[2021-09-17] MEDS ORDERED: GLYXAMBI 25-5 M1 TAB PO (10:44)
[2021-09-17] MEDS ORDERED: COZAAR25 MG PO (10:45)
[2021-09-17 12:00] VITALS: BP 128/76
[2021-09-17] MEDS ORDERED: DOXYCYCL HYC100 M4 PO (12:25)
--- NOTE | 2021-09-17 13:00 | NUR ---
PT SLEEING. STATES NO PAIN. NO DISTRESS NOTED. BREATHING EVEN AND UNLABIORED. TELE MONITOR IN PLACE, CONTINOUS MONTITORING PER ED. FALL/SAFTEY PRECAUTUION IN PLACE. CALL LIGHT WITHIN REACH
[2021-09-17] MEDS ORDERED: KEFLEX500 MG PO (13:02)
--- NOTE | 2021-09-17 15:06 | NUR ---
Discharge instructions given. Patient verbalizes understanding of same. Discharged in stable condition via Wheelchair to Home with staff. All belongings sent with pt.
== END 2021-09-17 15:07 | disposition home or self-care (01) ==
LOC: ED 14:50 → ED-I 18:00 → ED 18:31 → MS2 18:32
PROVIDERS: Family Medicine; ADMIT Hospitalist; ATTEND Hospitalist
DX: L02.416 Cutaneous abscess of left lower limb (principal); L03.116 Cellulitis of left lower limb; I10 Essential (primary) hypertension; E11.40 Type 2 diabetes mellitus with diabetic neuropathy, unspecified; E11.65 Type 2 diabetes mellitus with hyperglycemia; I25.10 Atherosclerotic heart disease of native coronary artery without angina pectoris; F31.9 Bipolar disorder, unspecified; F17.200 Nicotine dependence, unspecified, uncomplicated; J45.909 Unspecified asthma, uncomplicated; I25.2 Old myocardial infarction; Z95.5 Presence of coronary angioplasty implant and graft; Z79.4 Long term (current) use of insulin; Z79.84 Long term (current) use of oral hypoglycemic drugs; Z89.512 Acquired absence of left leg below knee; Z89.411 Acquired absence of right great toe; E66.01 Morbid (severe) obesity due to excess calories; Z68.35 Body mass index [BMI] 35.0-35.9, adult; Z99.3 Dependence on wheelchair; Z20.822 Contact with and (suspected) exposure to COVID-19
CPT/HCPCS: G0378; J0692; Q9967

== ENCOUNTER 2022-06-22 23:11 | Observation (INO) | payer MEDICAID ==
[~2022-06-22] VITALS: Ht 175.3 cm; Wt 102.8 kg
[~2022-06-22 23:11] MED LIST changes: +ALL DAY10 MG PO; +ARAVA10 MG PO; +COZAAR25 MG PO; +DOXYCYCL HYC100 M4 PO; +FAMOTIDINE PO; +GLYXAMBI 25-5 M1 TAB PO; +IPRATROPIUM BR0.02 % PO; +KEFLEX500 MG PO; +LANTUS SOL100 UNIT/M SC; +MUPIROCIN21 TOP; -OXCARBAZEPINE150 MG PO; +TRILEPTAL150 MG PO; +VITAMIN D350000 UNIT PO; +ZOLPIDEM5 M1 PO
[2022-06-22 23:20] VITALS: BP 118/65
[2022-06-22 23:31] VITALS: BP 125/71
[2022-06-22 23:45] VITALS: BP 126/77
[2022-06-23] VITALS (35 sets, daily range): BP systolic 116–165; BP diastolic 56–129
--- NOTE | 2022-06-23 00:10 | NUR ---
PT BROUGHT BACK TO RM 15. STABLE CONDITION. LABS DRAWN, EKG COMPLETED, SCANS AND CT TO BE DONE WILL AWAIT RESULTS. WILL CONTINUE TO MONITOR.
[2022-06-23 00:57] LABS: BASO% 0.2 % (0-3); EOS% 2.1 % (0-8); IMMATURE GRANULOCYTES 0.2 % (0.0-5.0); LYMPH% 14.1 % (15-41); MEAN CELL VOLUME 90.2 fL CALC (80.0-100.0); MEAN CORPUSCULAR HGB 28.4 pG CALC (26.0-32.0); MEAN CORPUSCULAR HGB CONC 31.5 g/dL CAL (32.0-36.0); MONO% 5.9 % (2-13); NEUT# 9.42 thou/uL (2.00-7.15); NEUT% 77.5 % (42-76); RED BLOOD COUNT 3.17 mill/uL (4.20-5.60); RED CELL DISTRI WIDTH 14.3 % (11.5-15.5)
[2022-06-23 01:02] LABS: HEMATOCRIT 28.6 % (37.0-47.0)
[2022-06-23 01:17] LABS: ALBUMIN 3.7 g/dL (3.2-5.0); ALKALINE PHOSPHATASE 90 u/l (38-126); BILIRUBIN, TOTAL 0.3 mg/dL (0.02-1.3); BUN 29 mg/dL (7-17); BUN/CREATININE RATIO 23 (12-20 (CALC)); CARBON DIOXIDE 24 mmol/l (22-30); CHLORIDE 105 mmol/l (95-108); CREATININE 1.3 mg/dL (0.5-1.0); GFR FOR AFR.AMER. 54 ML/MIN (>=60 (CALC)); GFR OTHER RACES 44 ML/MIN (>=60 (CALC)); SGOT/AST 22 u/l (14-36); SODIUM 137 mmol/l (137-146); TOTAL PROTEIN 6.9 g/dL (6.3-8.2)
[2022-06-23 01:24] LABS: ANION GAP 13 (6-22 (CALC)); POTASSIUM 4.8 mmol/l (3.5-5.1)
--- NOTE | 2022-06-23 02:00 | NUR ---
Reassessment of patient completed. No distress noted.
[2022-06-23] MEDS ORDERED: GABAPENTIN100 MG PO (03:47)
[2022-06-23] MEDS ORDERED: DOXYCYCL HYC100 M4 PO (03:48)
[2022-06-23] MEDS ORDERED: CLOPIDOGREL75 MG PO (03:51)
[2022-06-23] MEDS ORDERED: VITAMIN D350000 UNIT PO (03:53)
--- NOTE | 2022-06-23 04:00 | NUR ---
Reassessment of patient completed. No distress noted.
[2022-06-23] MEDS ORDERED: EZETIMIBE10 MG (04:12)
--- NOTE | 2022-06-23 05:30 | NUR ---
PT PLACED IN HOSPITAL BED FOR COMFORT.
--- NOTE | 2022-06-23 06:53 | NUR ---
GAVE PT MORNING MEDICATION, UPON TAKING CHEWABLE ASPIRIN PT BEGAN TO GET CHOKED UP AND VOMIT. PT CLEARED AND PRESSURE BEGAN TO LOWER AND O2 INCREASED.
--- NOTE | 2022-06-23 08:22 | NUR ---
report called to [facility], all questions anwsered at this time, transport to inpatient
--- NOTE | 2022-06-23 10:00 | NUR ---
PT RECIEVED TO ROOM AT 0830.C/O OF FEELING HOT AND NOT BEING ABLE TO BREATHE.PT ANSWERED ALL QUESTIONS ASKED BY ME.BLOOD PRESSURE STABLE STABLE 140/90.BILATERAL LUNG SOUNDS WITH CRACKLES.NO USE OF ACCESSORY MUSCLES.O2 @ 2L VIA NC.IV IN LFA [place].ABLE TO MAKE NEEDS KNOWN.FRIEND AT BEDSIDE.CALL LIGHT WITHIN REACH.
--- NOTE | 2022-06-23 13:22 | NUR ---
CONFIRMED A PHYSICIAN CONSULT WITH THE WOUND CARE CLINIC. I SPOKE WITH REE AT 1314 HRS.
--- NOTE | 2022-06-23 17:07 | NUR ---
PT RESTING BED.EYES CLOSED RESPIRATIONS EVEN,UNLABORED.NO C/O PAIN.02 @ 2L VIA NC.SAFETY PREACATIONS IN PLACE.CALL LIGHT IN PLACE.
--- NOTE | 2022-06-23 19:52 | NUR ---
PT HAD A GLUCOSE OF 324 @2000
--- NOTE | 2022-06-23 20:00 | NUR ---
RECEIVED REPORT FROM NURSE CARRINGTON, PATIENT RESTING IN BED, PATIENT ALERT ORIENTED ABLE TO MAKE NEEDS TRA GAITAN HOOKED ON O2 @ 2LPM VIA NC, PATIENT IS NOT O2 DEPENDENT AT HOME, HAS EMS SITE ON LAC G 18 PATENT FLUSHES WELL, HOOKED ON TELEMTERY, LUNG SOUNDS DIMINISHED, DENIES PAIN ATHIS TIME, PATIENT STATED FELL ASLEEP FEEL MUCH BETTER THAN THE PAST 2 DAYS, DRESSING ON BUTTOCKS CDI, CALL LIGHT IN REACH.
--- NOTE | 2022-06-23 22:58 | NUR ---
Patient has a due wound culture collected at this time, new dressing in place, call light in reach.
--- NOTE | 2022-06-24 03:51 | NUR ---
Patient resting in bed, eyes closed, not in distress, call light in reach.
[2022-06-24 04:09] VITALS: BP 117/69
[2022-06-24 05:50] LABS: BASO% 0.2 % (0-3); HEMATOCRIT 30.1 % (37.0-47.0); HEMOGLOBIN 9.5 g/dl (12.0-16.0); IMMATURE GRANULOCYTES 0.2 % (0.0-5.0); LYMPH% 13.2 % (15-41); MEAN CELL VOLUME 89.3 fL CALC (80.0-100.0); MEAN CORPUSCULAR HGB 28.2 pG CALC (26.0-32.0); MEAN CORPUSCULAR HGB CONC 31.6 g/dL CAL (32.0-36.0); MONO% 1.8 % (2-13); NEUT# 4.29 thou/uL (2.00-7.15); NEUT% 84.6 % (42-76); RED BLOOD COUNT 3.37 mill/uL (4.20-5.60); RED CELL DISTRI WIDTH 13.9 % (11.5-15.5)
[2022-06-24 05:59] LABS: ALKALINE PHOSPHATASE 95 u/l (38-126); ANION GAP 15 (6-22 (CALC)); BILIRUBIN, TOTAL 0.4 mg/dL (0.02-1.3); BUN 34 mg/dL (7-17); BUN/CREATININE RATIO 36 (12-20 (CALC)); CARBON DIOXIDE 23 mmol/l (22-30); CHLORIDE 102 mmol/l (95-108); CREATININE 0.9 mg/dL (0.5-1.0); GFR FOR AFR.AMER. > 60 ML/MIN (>=60 (CALC)); GFR OTHER RACES > 60 ML/MIN (>=60 (CALC)); MAGNESIUM 1.9 mg/dL (1.6-2.3); POTASSIUM 3.9 mmol/l (3.5-5.1); SGOT/AST 17 u/l (14-36); SODIUM 136 mmol/l (137-146); TOTAL PROTEIN 7.8 g/dL (6.3-8.2)
--- NOTE | 2022-06-24 06:10 | NUR ---
pt glucose was 330 @0600
--- NOTE | 2022-06-24 08:00 | NUR ---
PT ALERT AND ORIENTED X3.ABLE TO MAKE NEEDS KNOWN.NO C/O PAIN.EMS IV 18G LFA NO SOLUTIONS INFUSING.RESPIRATIONS EVEN,UNLABORED.LUNG SOUNDS DIMINSHED CRACKLES IN BILATERAL LOBES.SAFETY PRECAUTIONS IN PLACE.CALL LIGHT WITHIN REACH.
[2022-06-24] MEDS ORDERED: LASIX20 MG PO (09:54)
[2022-06-24] MEDS ORDERED: PREDNISONE10 MG PO (09:54)
[2022-06-24] MEDS ORDERED: VIBRAMYCIN100 M2 PO (09:55)
[2022-06-24] MEDS ORDERED: LEVEMIR100 UNIT SC (09:57)
[2022-06-24 11:24] VITALS: BP 105/58
--- NOTE | 2022-06-24 11:24 | NUR ---
pt glcuose was 433 @1100
--- NOTE | 2022-06-24 12:54 | NUR ---
PT IV REMOVED.PT DISCHARGED HOME WITH INSTRUCTIONS AND TEACHING.PT DC'D TO HOME VIA W/C IN STABLE CONDITION.
== END 2022-06-24 12:50 ==
LOC: ED 23:11 → ED-I 06-23 05:00 → ED 06-23 05:30 → MS2 06-23 05:31
PROVIDERS: Emergency Medicine; Nurse Practitioner Family; ADMIT Internal Medicine; ATTEND Internal Medicine
DX: J44.1 Chronic obstructive pulmonary disease with (acute) exacerbation (principal); R09.02 Hypoxemia; I11.0 Hypertensive heart disease with heart failure; I50.9 Heart failure, unspecified; E11.40 Type 2 diabetes mellitus with diabetic neuropathy, unspecified; I25.10 Atherosclerotic heart disease of native coronary artery without angina pectoris; S31.809A Unspecified open wound of unspecified buttock, initial encounter; L03.317 Cellulitis of buttock; L02.31 Cutaneous abscess of buttock; F31.9 Bipolar disorder, unspecified; E66.9 Obesity, unspecified; I25.2 Old myocardial infarction; F17.200 Nicotine dependence, unspecified, uncomplicated; E78.5 Hyperlipidemia, unspecified; X58.XXXA Exposure to other specified factors, initial encounter; Z89.411 Acquired absence of right great toe; Z79.84 Long term (current) use of oral hypoglycemic drugs; Z95.5 Presence of coronary angioplasty implant and graft; Z89.512 Acquired absence of left leg below knee; Z79.4 Long term (current) use of insulin; Z20.822 Contact with and (suspected) exposure to COVID-19
CPT/HCPCS: G0378

== ENCOUNTER 2022-07-19 22:46 | Emergency (ER) | payer MEDICAID ==
[~2022-07-19] VITALS: Ht 175.3 cm; Wt 101.6 kg
[~2022-07-19 22:46] MED LIST changes: +CLOPIDOGREL75 MG PO; +EZETIMIBE10 MG; +GABAPENTIN100 MG PO; +LASIX20 MG PO; +PREDNISONE10 MG PO; +VIBRAMYCIN100 M2 PO
[2022-07-19 22:51] VITALS: BP 130/79
[2022-07-19 23:00] VITALS: BP 138/83
[2022-07-19 23:10] LABS: BASO% 0.1 % (0-3); EOS% 0.3 % (0-8); HEMATOCRIT 32.5 % (37.0-47.0); HEMOGLOBIN 10.2 g/dl (12.0-16.0); IMMATURE GRANULOCYTES 0.3 % (0.0-5.0); LYMPH% 10.8 % (15-41); MEAN CELL VOLUME 90.8 fL CALC (80.0-100.0); MEAN CORPUSCULAR HGB 28.5 pG CALC (26.0-32.0); MEAN CORPUSCULAR HGB CONC 31.4 g/dL CAL (32.0-36.0); MONO% 3.4 % (2-13); NEUT# 8.74 thou/uL (2.00-7.15); NEUT% 85.1 % (42-76); RED BLOOD COUNT 3.58 mill/uL (4.20-5.60)
[2022-07-19 23:15] VITALS: BP 142/82
[2022-07-19 23:27] LABS: ALBUMIN 4.2 g/dL (3.2-5.0); ALKALINE PHOSPHATASE 102 u/l (38-126); BILIRUBIN, TOTAL 0.3 mg/dL (0.02-1.3); BUN 33 mg/dL (7-17); BUN/CREATININE RATIO 24 (12-20 (CALC)); CARBON DIOXIDE 20 mmol/l (22-30); CHLORIDE 101 mmol/l (95-108); CREATININE 1.4 mg/dL (0.5-1.0); GFR FOR AFR.AMER. 49 ML/MIN (>=60 (CALC)); GFR OTHER RACES 41 ML/MIN (>=60 (CALC)); SODIUM 133 mmol/l (137-146); TOTAL PROTEIN 7.6 g/dL (6.3-8.2)
[2022-07-19 23:31] VITALS: BP 155/66
[2022-07-19 23:35] LABS: ANION GAP 17 (6-22 (CALC)); POTASSIUM 4.7 mmol/l (3.5-5.1); SGOT/AST 45 u/l (14-36)
[2022-07-19 23:46] VITALS: BP 124/69
[2022-07-20] VITALS: BP 129/68
[2022-07-20 00:15] VITALS: BP 124/72
[2022-07-20 00:30] VITALS: BP 118/67
[2022-07-20 00:45] VITALS: BP 117/71
[2022-07-20] MEDS ORDERED: ALBUTEROL SUL0.083 % IN (00:58)
[2022-07-20] MEDS ORDERED: PREDNISONE50 MG PO (00:58)
[2022-07-20 01:01] VITALS: BP 124/67
[2022-07-20 01:05] VITALS: BP 124/67
== END 2022-07-20 01:30 | disposition home or self-care (01) ==
LOC: ED 22:46
PROVIDERS: Family Medicine
DX: J45.909 Unspecified asthma, uncomplicated (principal); I10 Essential (primary) hypertension; E11.40 Type 2 diabetes mellitus with diabetic neuropathy, unspecified; I25.2 Old myocardial infarction; F17.200 Nicotine dependence, unspecified, uncomplicated; Z95.5 Presence of coronary angioplasty implant and graft; Z89.512 Acquired absence of left leg below knee; Z79.84 Long term (current) use of oral hypoglycemic drugs; Z79.4 Long term (current) use of insulin

== ENCOUNTER 2022-08-06 19:19 | Emergency (ER) | payer MEDICAID ==
[2022-08-06] VITALS (11 sets, daily range): BP systolic 115–139; BP diastolic 48–84
[~2022-08-06] VITALS: Ht 175.3 cm; Wt 106.1 kg
[~2022-08-06 19:19] MED LIST changes: +ALBUTEROL SUL0.083 % IN; +PREDNISONE50 MG PO
[2022-08-06 22:53] LABS: BASO% 0.2 % (0-3); EOS% 0.7 % (0-8); HEMOGLOBIN 9.5 g/dl (12.0-16.0); IMMATURE GRANULOCYTES 0.3 % (0.0-5.0); LYMPH% 17.1 % (15-41); MEAN CELL VOLUME 92.3 fL CALC (80.0-100.0); MEAN CORPUSCULAR HGB 29.2 pG CALC (26.0-32.0); MEAN CORPUSCULAR HGB CONC 31.7 g/dL CAL (32.0-36.0); MONO% 5.3 % (2-13); NEUT# 10.28 thou/uL (2.00-7.15); NEUT% 76.4 % (42-76); RED BLOOD COUNT 3.25 mill/uL (4.20-5.60); RED CELL DISTRI WIDTH 14.1 % (11.5-15.5)
[2022-08-06 23:21] LABS: ALBUMIN 3.7 g/dL (3.2-5.0); ALKALINE PHOSPHATASE 95 u/l (38-126); ANION GAP 12 (6-22 (CALC)); BUN 31 mg/dL (7-17); BUN/CREATININE RATIO 30 (12-20 (CALC)); CARBON DIOXIDE 21 mmol/l (22-30); CHLORIDE 104 mmol/l (95-108); GFR FOR AFR.AMER. > 60 ML/MIN (>=60 (CALC)); GFR OTHER RACES 60 ML/MIN (>=60 (CALC)); POTASSIUM 4.3 mmol/l (3.5-5.1); SGOT/AST 29 u/l (14-36); SODIUM 133 mmol/l (137-146)
[2022-08-06 23:22] LABS: BILIRUBIN, TOTAL 0.6 mg/dL (0.02-1.3)
[2022-08-07] MEDS ORDERED: LORTAB 1010 MG PO (02:35)
[2022-08-07] MEDS ORDERED: CLEOCIN300 MG PO (02:35)
[2022-08-07 02:38] VITALS: BP 133/71
== END 2022-08-07 02:50 | disposition home or self-care (01) ==
LOC: ED 19:19
PROVIDERS: Emergency Medicine
DX: T87.44 Infection of amputation stump, left lower extremity (principal); L03.116 Cellulitis of left lower limb; I10 Essential (primary) hypertension; E11.40 Type 2 diabetes mellitus with diabetic neuropathy, unspecified; I25.2 Old myocardial infarction; J45.909 Unspecified asthma, uncomplicated; F31.9 Bipolar disorder, unspecified; F17.210 Nicotine dependence, cigarettes, uncomplicated; Y83.5 Amputation of limb(s) as the cause of abnormal reaction of the patient, or of later complication, without mention of misadventure at the time of the procedure; Z95.5 Presence of coronary angioplasty implant and graft; Z89.421 Acquired absence of other right toe(s); Z89.512 Acquired absence of left leg below knee; Z79.84 Long term (current) use of oral hypoglycemic drugs; Z79.4 Long term (current) use of insulin
CPT/HCPCS: Q9967

== ENCOUNTER 2023-01-18 19:10 | Emergency (ER) | payer MEDICAID ==
[~2023-01-18] VITALS: Ht 175.3 cm; Wt 110.0 kg
[~2023-01-18 19:10] MED LIST changes: +CLEOCIN300 MG PO; +DOXYCYCLINE HY100 MG PO; +DULOXETINE HCL30 MG PO; -EZETIMIBE10 MG; +FOLIC ACID1 M1 PO; -GABAPENTIN100 MG PO; +GABAPENTIN800 MG PO; +LANTUS100 UNIT SC; +LORTAB 1010 MG PO; +METHOTREXATE S2.5 MG; +MOTRIN800 MG PO; -PAROXETINE10 MG PO; +PAXIL40 MG PO; +TRAZODONE100 MG PO; -TRAZODONE50 MG PO; +VITAMIN D1.25 MG PO; +ZETIA10 MG PO
[2023-01-18 19:45] VITALS: BP 150/82
[2023-01-18 20:00] VITALS: BP 167/91
[2023-01-18 20:16] VITALS: BP 155/79
[2023-01-18 20:31] VITALS: BP 161/97
[2023-01-18] MEDS ORDERED: PREDNISONE20 MG PO (20:37)
[2023-01-18] MEDS ORDERED: IPRATROPIU0.5 MG/3 M IN (20:37)
[2023-01-18 20:46] VITALS: BP 151/71
[2023-01-18 20:51] VITALS: BP 151/71
== END 2023-01-18 20:52 | disposition home or self-care (01) ==
LOC: ED 19:10
DX: J45.909 Unspecified asthma, uncomplicated (principal); E11.51 Type 2 diabetes mellitus with diabetic peripheral angiopathy without gangrene; I12.9 Hypertensive chronic kidney disease with stage 1 through stage 4 chronic kidney disease, or unspecified chronic kidney disease; E11.22 Type 2 diabetes mellitus with diabetic chronic kidney disease; N18.9 Chronic kidney disease, unspecified; I25.10 Atherosclerotic heart disease of native coronary artery without angina pectoris; J44.9 Chronic obstructive pulmonary disease, unspecified; F31.9 Bipolar disorder, unspecified; E66.9 Obesity, unspecified; I25.2 Old myocardial infarction; Z89.512 Acquired absence of left leg below knee; Z89.411 Acquired absence of right great toe; Z89.421 Acquired absence of other right toe(s); Z79.4 Long term (current) use of insulin; Z20.822 Contact with and (suspected) exposure to COVID-19

== ENCOUNTER 2023-01-19 01:45 | Inpatient (IN) | payer MEDICAID ==
[~2023-01-19] VITALS: Ht 175.3 cm; Wt 110.0 kg
[2023-01-19] VITALS (14 sets, daily range): BP systolic 114–167; BP diastolic 56–98
[~2023-01-19 01:45] MED LIST changes: +IPRATROPIU0.5 MG/3 M IN; +PREDNISONE20 MG PO
--- NOTE | 2023-01-19 01:45 | NUR ---
PT TO ER BED 6 FOR TRIAGE AT THIS TIME VIA EMS STRETCHER WITH CPAP IN PLACE FROM EMS. CALL LIGHT WITHIN REACH AND PT AWAITING EDP EXAM.
[2023-01-19 02:40] LABS: BASO% 0.1 % (0-3); EOS% 0.1 % (0-8); HEMATOCRIT 35.2 % (37.0-47.0); HEMOGLOBIN 10.9 g/dl (12.0-16.0); IMMATURE GRANULOCYTES 0.5 % (0.0-5.0); LYMPH% 4.7 % (15-41); MEAN CELL VOLUME 95.1 fL CALC (80.0-100.0); MEAN CORPUSCULAR HGB 29.5 pG CALC (26.0-32.0); MONO% 0.5 % (2-13); NEUT# 12.54 thou/uL (2.00-7.15); NEUT% 94.1 % (42-76); RED BLOOD COUNT 3.7 mill/uL (4.20-5.60)
[2023-01-19 02:51] LABS: ALBUMIN 4.3 g/dL (3.2-5.0); ALKALINE PHOSPHATASE 115 u/l (38-126); ANION GAP 18 (6-22 (CALC)); BILIRUBIN, TOTAL 0.6 mg/dL (0.02-1.3); BUN 22 mg/dL (7-17); BUN/CREATININE RATIO 25 (12-20 (CALC)); CARBON DIOXIDE 22 mmol/l (22-30); CHLORIDE 105 mmol/l (95-108); CREATININE 0.9 mg/dL (0.5-1.0); GFR FOR AFR.AMER. > 60 ML/MIN (>=60 (CALC)); GFR OTHER RACES > 60 ML/MIN (>=60 (CALC)); POTASSIUM 4.5 mmol/l (3.5-5.1); SGOT/AST 44 u/l (14-36); SODIUM 140 mmol/l (137-146); TOTAL PROTEIN 8.1 g/dL (6.3-8.2)
--- NOTE | 2023-01-19 07:00 | NUR ---
REPORT RECIEVED FROM PAMELLA
--- NOTE | 2023-01-19 07:30 | NUR ---
PT TO FLOOR VIA STRETCHER. ABLE TO PIVOT TO BED IN ROOM 268, IV AZITHROMYCIN SENT WITH PT AND CONT ON PUMP, NURSE AT BEDSIDE, BELONGINGS SENT WITH PATIENT
--- NOTE | 2023-01-19 07:30 | NUR ---
RECEIVE ADMISSION FROM ER. REPORT FROM KAYA ER NURSE. PT ALERT AND ORIENTED X3. O2 2L NC. TELE MONITOR ON. PT IS EDUCTED ABOUD ADMISSION, MEDICATIONS AND NURSING PLAN FOR TODAY. PTT REFER UNDERSTAND. SAFETY AND FALL PRECAUTIONS IN PLACE. CALL LIGHT WITHIN IN REACH.
--- NOTE | 2023-01-19 10:49 | NUR ---
nurse notified of patient glucose level meter read high wouldn't cotton picker operator number.
--- NOTE | 2023-01-19 12:00 | NUR ---
PATIENT RESTING IN BED STABLE AT THIS TIME. TELE MONITOR ON. SAFETY AND FALL PRECAUTIONS IN PLACE. CALL LIGHT WITHIN IN REACH. EDY HEREDIA.
--- NOTE | 2023-01-19 16:15 | NUR ---
PATIENT GLUCOSE LEVEL IS 436, NURSE NOTIFIED.
--- NOTE | 2023-01-19 19:47 | NUR ---
patient blood sugar read 488 nurse aware
--- NOTE | 2023-01-19 21:00 | NUR ---
PATIENT BG 488 CALLED MD RECEIVED VERBAL ORDER FOR INSULIN 15UNITS X1.
[2023-01-20] VITALS (7 sets, daily range): BP systolic 139–166; BP diastolic 71–92
--- NOTE | 2023-01-20 | NUR ---
PATIENT SLEEPING NO DISTRESS NOTED ON EXAM. CALL LIGHT WITHIN REACH. FAMILY IN ROOM. PLAN OF CARE ONGOING.
--- NOTE | 2023-01-20 05:09 | NUR ---
NO CHANGES PATIENT SLEEPING NO DISTRESS NOTED ON EXAM. NON LABOR BREATHING ON RA. CALL LIGHT WITHIN REACH. PLAN OF CARE ONGOING.
--- NOTE | 2023-01-20 06:24 | NUR ---
Nurse caprice made aware of patient blood sugar of 476 @6942
[2023-01-20 06:33] LABS: BASO% 0.1 % (0-3); HEMATOCRIT 29.6 % (37.0-47.0); HEMOGLOBIN 9.4 g/dl (12.0-16.0); IMMATURE GRANULOCYTES 0.5 % (0.0-5.0); LYMPH% 5.7 % (15-41); MEAN CELL VOLUME 93.7 fL CALC (80.0-100.0); MEAN CORPUSCULAR HGB 29.7 pG CALC (26.0-32.0); MEAN CORPUSCULAR HGB CONC 31.8 g/dL CAL (32.0-36.0); MONO% 2.2 % (2-13); NEUT# 9.97 thou/uL (2.00-7.15); NEUT% 91.5 % (42-76); RED BLOOD COUNT 3.16 mill/uL (4.20-5.60)
[2023-01-20 06:40] LABS: CREATININE 1.2 mg/dL (0.5-1.0); MAGNESIUM 2.2 mg/dL (1.6-2.3); POTASSIUM 4.1 mmol/l (3.5-5.1)
[2023-01-20 06:45] LABS: ALBUMIN 3.4 g/dL (3.2-5.0); BILIRUBIN, TOTAL 0.3 mg/dL (0.02-1.3); TOTAL PROTEIN 6.3 g/dL (6.3-8.2)
--- NOTE | 2023-01-20 08:02 | NUR ---
PT RESTING IN BED WITH DAUGHTER AT BEDSIDE. ASSESSMENT COMPLETED. EDUCATED DIABETES MANAGMENT. PT INIDICATED UNDERSTANDING. GLUCOSE: 476 COVERED PER MD ORDER SEE EMAR. PT STATES NO PAIN. TELE MONITOR IN PLACE, CONTINOUS MONITORING PER ED. RESPIRATIONS ARE EVEN AD UNLABORED. UPDATED ON CURRENT PLAN OF CARE. PT INDIFATED UNDERSTANING. FALL/SAFTEY PRECAUTION IN PLACE. CALL LIGHT WIHTN REACH
--- NOTE | 2023-01-20 09:37 | NUR ---
PT REPORTS ITHING IN UPPER/LOWER EXTREMETIES. RN IMCU NOTIFIED ORDERS FOR BENADRYL SEE EMAR. ABX ATHITHROMYCIN STOPPED. AIRWAY CLEAR. PT A&OX3. FALL/SAFTEY PRECAUTION IN PLACE. CALL LIGHT WITHIN REACH.
--- NOTE | 2023-01-20 10:53 | NUR ---
nurse alexandro made aware of patient glucose was 523 @1045
--- NOTE | 2023-01-20 12:10 | NUR ---
PT WATCHING TV WITH FAMILY MEMBERS AT BEDSIDE. NO DISTRESS NOTED. STATES NO FEELING OF ITCHINESS. FALL/SAFTEY PRECAUTION IN PLACE. CALL LIGHT WITHIN REACH.
--- NOTE | 2023-01-20 18:02 | NUR ---
orders for 5 units of lispro instead of 7 units per sliding scale per md jackson pt glucose 257. fall/saftey precaution in place. call light within reach
--- NOTE | 2023-01-20 20:00 | NUR ---
PATIENT RESTING, EASILY AROUSED. ASSESSMENT COMPLETE. ALERT AND ORIENTED X3; DROWSY. DENIES PAIN AT THIS TIME, NO CONCERNS EXPRESSED. CALL LIGHT WITHIN REACH, VISITOR AT BEDSIDE.
--- NOTE | 2023-01-20 22:45 | NUR ---
PATIENT IN DEEP SLEEP, SNORING. PATIENT LETHARGIC, AWAKENS BUT FALLS ASLEEP DURING INTERACTION. XANAX AND TRAZODONE HELD AT THIS TIME.
[2023-01-21] VITALS (11 sets, daily range): BP systolic 132–186; BP diastolic 77–98
[2023-01-21 05:53] LABS: URINE BILIRUBIN - DIPSTICK Negative (NEGATIVE); URINE BLOOD DIPSTICK Negative (NEGATIVE); URINE GLUCOSE - DIPSTICK 500 mg/dL (NEGATIVE); URINE KETONE Negative (NEGATIVE); URINE LEUK ESTERASE Negative (NEGATIVE); URINE NITRITE - DIPSTICK Negative (Negative); URINE PH 5.5 (4.5-8.0); URINE PROTEIN - DIPSTICK Negative (NEG-TRACE); URINE SPECIFIC GRAVITY 1.015; URINE UROBILINOGEN - DIPSTICK 0.2 E.U./dL (0.2)
[2023-01-21 05:53] LABS: HEMATOCRIT 29.7 % (37.0-47.0); HEMOGLOBIN 9.2 g/dl (12.0-16.0); IMMATURE GRANULOCYTES 0.5 % (0.0-5.0); LYMPH% 4.9 % (15-41); MEAN CELL VOLUME 94.9 fL CALC (80.0-100.0); MEAN CORPUSCULAR HGB 29.4 pG CALC (26.0-32.0); MONO% 2.3 % (2-13); NEUT# 10.96 thou/uL (2.00-7.15); NEUT% 92.3 % (42-76); RED BLOOD COUNT 3.13 mill/uL (4.20-5.60); RED CELL DISTRI WIDTH 13.2 % (11.5-15.5)
[2023-01-21 05:58] LABS: URINE COLOR Yellow
[2023-01-21 06:54] LABS: ALBUMIN 3.4 g/dL (3.2-5.0); ALKALINE PHOSPHATASE 88 u/l (38-126); BILIRUBIN, TOTAL 0.3 mg/dL (0.02-1.3); BUN 61 mg/dL (7-17); BUN/CREATININE RATIO 62 (12-20 (CALC)); CARBON DIOXIDE 22 mmol/l (22-30); CHLORIDE 103 mmol/l (95-108); GFR FOR AFR.AMER. > 60 ML/MIN (>=60 (CALC)); GFR OTHER RACES 60 ML/MIN (>=60 (CALC)); MAGNESIUM 2.3 mg/dL (1.6-2.3); SGOT/AST 33 u/l (14-36); SODIUM 135 mmol/l (137-146); TOTAL PROTEIN 6.2 g/dL (6.3-8.2)
--- NOTE | 2023-01-21 07:00 | NUR ---
RECEIVE REPORT FROM SAIMA. PT RESTING IN BED STABLE AT THIS TIME. SAFETY AND FALL PRECAUTIONS IN PLACE. CALL LIGHT WITHIN IN REACH. EDY CEJA FOR PT SATISFACTIONS AND FALL PRECAUTIONS.
[2023-01-21 07:33] LABS: ANION GAP 15 (6-22 (CALC)); POTASSIUM 5.2 mmol/l (3.5-5.1)
--- NOTE | 2023-01-21 11:21 | NUR ---
nurse notified of patient glucose level is 417.
--- NOTE | 2023-01-21 12:38 | NUR ---
PATIENT RESTING IN BED STABLE AT THIS TIME. TELE MONITOR ON. SAFETY AND FALL PRECAUTIONS IN PLACE. CALL LIGHT WITHIN IN REACH. EDY HEREDIA.
[2023-01-21 14:32] LABS: ALBUMIN 3.4 g/dL (3.2-5.0); ALKALINE PHOSPHATASE 55 u/l (38-126); BUN 60 mg/dL (7-17); BUN/CREATININE RATIO 69 (12-20 (CALC)); CHLORIDE 107 mmol/l (95-108); CREATININE 0.9 mg/dL (0.5-1.0); GFR FOR AFR.AMER. > 60 ML/MIN (>=60 (CALC)); GFR OTHER RACES > 60 ML/MIN (>=60 (CALC)); SODIUM 134 mmol/l (137-146); TOTAL PROTEIN 6.7 g/dL (6.3-8.2)
[2023-01-21 14:50] LABS: ANION GAP 17 (6-22 (CALC)); BILIRUBIN, TOTAL 0.6 mg/dL (0.02-1.3); CARBON DIOXIDE 15 mmol/l (22-30); POTASSIUM 5.3 mmol/l (3.5-5.1); SGOT/AST 97 u/l (14-36)
--- NOTE | 2023-01-21 15:43 | NUR ---
NO CHANGES. PATIENT RESTING IN BED. FAMILY IS IN THE ROOM. NON LABOR BREATHING. CALL LIGHT WITHIN REACH.
--- NOTE | 2023-01-21 20:00 | NUR ---
RECEIVED REPORT FROM NURSE GARRETT, PATIENT SITTING IN BED, FAMILY IN ROOM, PATINET EATING GRAPES, SALINE LOCK NOTED ON LAC PATENT FLUSHES WELL, PATIENT IN LEFT BKA, PATINET DENIES PAIN AT THIS TIME, CALL LIGHT IN REACH.
--- NOTE | 2023-01-21 20:34 | NUR ---
nurse notified of patient glucose of 468.
--- NOTE | 2023-01-21 21:06 | NUR ---
DISK SANDER MADE AWARE OF BLOOD SUGAR 468 WITH ORDERS TO GIVE A TOTAL OF 40UNITS HUMALOG, SENT TO .
--- NOTE | 2023-01-22 | NUR ---
PATIENT RESTING IN BED, EYES CLOSEWD, BREATHING EVEN UNALBORED, CALL LIGHT IN REACH.
--- NOTE | 2023-01-22 04:00 | NUR ---
PATINET NOT IN DISTRESS, NO DISCOMFORTS NOTED AT THIS TIME, FAMILY IN ROOM, CALL LIGHT IN REACH.
[2023-01-22 04:32] VITALS: BP 142/71
[2023-01-22 04:49] LABS: BASO% 0.1 % (0-3); HEMATOCRIT 29.8 % (37.0-47.0); HEMOGLOBIN 9.3 g/dl (12.0-16.0); IMMATURE GRANULOCYTES 1.2 % (0.0-5.0); LYMPH% 15.6 % (15-41); MEAN CELL VOLUME 95.5 fL CALC (80.0-100.0); MEAN CORPUSCULAR HGB 29.8 pG CALC (26.0-32.0); MEAN CORPUSCULAR HGB CONC 31.2 g/dL CAL (32.0-36.0); MONO% 6.5 % (2-13); NEUT# 8.52 thou/uL (2.00-7.15); NEUT% 76.6 % (42-76); RED BLOOD COUNT 3.12 mill/uL (4.20-5.60); RED CELL DISTRI WIDTH 13.2 % (11.5-15.5)
[2023-01-22 05:01] VITALS: BP 142/71
[2023-01-22 05:05] LABS: ALBUMIN 3.2 g/dL (3.2-5.0); BUN 57 mg/dL (7-17); BUN/CREATININE RATIO 57 (12-20 (CALC)); CHLORIDE 105 mmol/l (95-108); GFR FOR AFR.AMER. > 60 ML/MIN (>=60 (CALC)); GFR OTHER RACES 60 ML/MIN (>=60 (CALC)); MAGNESIUM 2.1 mg/dL (1.6-2.3); SGOT/AST 31 u/l (14-36); SODIUM 137 mmol/l (137-146)
[2023-01-22 05:19] LABS: ALKALINE PHOSPHATASE 85 u/l (38-126); ANION GAP 14 (6-22 (CALC)); BILIRUBIN, TOTAL 0.3 mg/dL (0.02-1.3); CARBON DIOXIDE 22 mmol/l (22-30)
[2023-01-22 06:13] VITALS: BP 139/69
[2023-01-22 07:07] VITALS: BP 139/69
--- NOTE | 2023-01-22 07:40 | NUR ---
PT SITTING IN RECYLINER UPON ENTERING ROOM. PT A/OX3. RESPIRATIONS EVEN AND UNLABORED ON ROOM AIR. LUNG SOUNDS CLEAR. HEART RHYTHM NORMAL WITH TELE IN PLACE. BOWEL SOUNDS ACTIVE. #20G LAC PATENT. SKIN INTACT. LBKA NOTED. PT DENIES OF ANY PAINS OR DISCOMFORTS. ALL SAFETY PRECAUTIONS ARE IN PLACE WITH CALL LIGHT IN REACH. WILL CONTINUE TO MONITOR.
[2023-01-22] MEDS ORDERED: HUMALOG100 UNIT SC (09:08)
[2023-01-22 10:06] VITALS: BP 139/69
--- NOTE | 2023-01-22 10:47 | NUR ---
PT EDUCATED ON DC INSTRUCTIONS AND ABJUSTMENT TO INSULIN. PT VERBALIZED UNDERSTANDING. IV REMOVE DWITH CATH INTACT. TELEW REMOVED. ER INFORMED. PT DC WITH FAMILY IN STABLE CONDITION
--- NOTE | 2023-01-22 10:48 | NUR ---
PT DC IN STABLE CONDITION VIA WHEELCHAIR ACCOMPAINED BY FAMILY WITH ALL BELONGINGS
== END 2023-01-22 10:48 | disposition home or self-care (01) | DRG 190 ==
LOC: ED 01:45 → ED-I 05:15 → ED 05:46 → MS2 05:47
PROVIDERS: Emergency Medicine; Nurse Practitioner Family; ADMIT Student in an Organized Health Care Education/Training Program; ATTEND Student in an Organized Health Care Education/Training Program
PROC: 5A09357 Assistance with Respiratory Ventilation, Less than 24 Consecutive Hours, Continuous Positive Airway Pressure (ICD-10-PCS; principal; 2023-01-19)
PROC: 3E02340 Introduction of Influenza Vaccine into Muscle, Percutaneous Approach (ICD-10-PCS; 2023-01-20)
DX: J44.1 Chronic obstructive pulmonary disease with (acute) exacerbation (principal); J18.9 Pneumonia, unspecified organism; I13.0 Hypertensive heart and chronic kidney disease with heart failure and stage 1 through stage 4 chronic kidney disease, or unspecified chronic kidney disease; L03.115 Cellulitis of right lower limb; J44.0 Chronic obstructive pulmonary disease with (acute) lower respiratory infection; E11.22 Type 2 diabetes mellitus with diabetic chronic kidney disease; N18.9 Chronic kidney disease, unspecified; E11.65 Type 2 diabetes mellitus with hyperglycemia; I50.9 Heart failure, unspecified; E11.40 Type 2 diabetes mellitus with diabetic neuropathy, unspecified; E11.69 Type 2 diabetes mellitus with other specified complication; E78.5 Hyperlipidemia, unspecified; I25.10 Atherosclerotic heart disease of native coronary artery without angina pectoris; F31.9 Bipolar disorder, unspecified; E66.9 Obesity, unspecified; I25.2 Old myocardial infarction; F17.200 Nicotine dependence, unspecified, uncomplicated; Z23 Encounter for immunization; Z89.512 Acquired absence of left leg below knee; Z89.411 Acquired absence of right great toe; Z89.421 Acquired absence of other right toe(s); Z79.4 Long term (current) use of insulin; Z91.119 Patient's noncompliance with dietary regimen due to unspecified reason